=== PATIENT | female | born 2000 | race Caucasian/White ===

== ENCOUNTER 2021-11-12 17:00 | Outpatient (CLI) | payer OTHER ==
[2021-11-12] MEDS ORDERED: PRENATAL TABLE1 EAC1 PO (18:50)
[2021-11-13] MEDS ORDERED: FUSION PLUS CA1 EACH PO (15:17)
[2021-11-13] MEDS ORDERED: CEPHALEXIN500 M1 PO (15:17)
== END 2021-11-13 16:10 | disposition home or self-care (01) ==
LOC: OBS/DEL 17:00
PROVIDERS: ATTEND Specialist
DX: O23.42 Unspecified infection of urinary tract in pregnancy, second trimester (principal); N39.0 Urinary tract infection, site not specified; Z3A.22 22 weeks gestation of pregnancy; R10.2 Pelvic and perineal pain; Z88.8 Allergy status to other drugs, medicaments and biological substances

== ENCOUNTER 2022-02-24 07:24 | Inpatient (IN) | payer OTHER ==
[~2022-02-24] VITALS: Ht 152.4 cm; Wt 56.7 kg
[~2022-02-24 07:24] MED LIST: CEPHALEXIN500 M1 PO; FUSION PLUS CA1 EACH PO; PRENATAL TABLE1 EAC1 PO
== END 2022-02-26 13:03 | disposition home or self-care (01) | DRG 807 ==
LOC: LDR 07:24 → OB/GYN 16:49
PROVIDERS: ADMIT Specialist; ATTEND Specialist
PROC: 10E0XZZ Delivery of Products of Conception, External Approach (ICD-10-PCS; principal; 2022-02-24)
PROC: 4A1HXCZ Monitoring of Products of Conception, Cardiac Rate, External Approach (ICD-10-PCS; 2022-02-24)
DX: O80 Encounter for full-term uncomplicated delivery (principal); Z37.0 Single live birth; Z3A.37 37 weeks gestation of pregnancy; Z20.822 Contact with and (suspected) exposure to COVID-19

== ENCOUNTER 2025-04-22 14:56 | Emergency (ER) | payer OTHER ==
[~2025-04-22] VITALS: Ht 152.4 cm; Wt 48.1 kg
[2025-04-22] MEDS ORDERED: PRENATAL + DHA1 EAC1 PO (15:33)
[2025-04-22 17:30] LABS: BASO % 0.2 % (0.1-1.2); EOS # 0.09 (0.04-0.54); EOS % 1.0 % (0.7-7.0); LYMPH # 2.82 (1.18-3.74); LYMPH % 30.2 % (19.3-53.1); MEAN PLATELET VOLUME 10.10 fl (9.4-12.4); MONO # 0.90 (0.24-0.82); MONO % 9.6 % (4.7-12.5); NEUT # 5.50 (1.56-6.13); NEUT % 58.8 % (34.0-71.1); RED CELL DISTRIBUTION WIDTH 16.8 % (11.6-14.4)
[2025-04-22 17:49] LABS: INR 1.05
[2025-04-22 17:55] LABS: ALT/SGPT 14.0 U/L (12-78); AST/SGOT 13.0 U/L (15-37); BILIRUBIN TOTAL 0.21 mg/dL (0.3-1.2); BUN CREA RATIO 13.0 (7.0-25.0); CREATININE SERUM 0.55 mg/dL (0.55-1.02); GFR 134.67; GLOBULINA 4.0 G/DL (2.4-3.5); GLUCOSE FASTING 92.0 mg/dL (65-100); OSMOLALITY SERUM 275.0 MOSM/KG (275-295)
[2025-04-22 18:35] LABS: URINE APPEARANCE Clear; URINE BILIRRUBIN Negative (NEGATIVE); URINE BLOOD Negative; URINE COLOR Yellow; URINE GLUCOSE Negative (NEGATIVE); URINE KETONE Negative (NEGATIVE); URINE LEUKOCYTE Small; URINE NITRATE Negative; URINE PROTEIN Negative (NEGATIVE); URINE UROBILINOGEN 0.2 E.U./dl
[2025-04-22 18:39] LABS: URINE BACTERIA 6941.5 uL (0.0-1933); URINE EPITHELIAL CELLS 34.7 uL (0.0-38.8); URINE WBC 59.2 uL (0.0-23.2)
[2025-04-22 19:08] LABS: TYPE CELLS SQUAMOUS; URINE CAST 0.14 uL (0.0-1.40); URINE MUCUS SCANT; URINE RBC 0.8 uL (0.0-20.8)
[2025-04-22] MEDS ORDERED: CEFAZOLIN SODIUM 1,000 MG VIAL IV STA (21:17)
[2025-04-22] MEDS ORDERED: CEPHALEXIN500 M1 PO (21:23)
[2025-04-22] MEDS ORDERED: CEFAZOLIN SODIUM 1,000 MG VIAL ONE (21:29)
== END 2025-04-22 21:43 | disposition home or self-care (01) ==
LOC: ER 14:56
PROVIDERS: General Practice
DX: O26.892 Other specified pregnancy related conditions, second trimester (principal); Z3A.18 18 weeks gestation of pregnancy; N39.0 Urinary tract infection, site not specified; R10.2 Pelvic and perineal pain; Z88.1 Allergy status to other antibiotic agents